=== PATIENT | male | born 2000 | race Caucasian/White ===

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

== ENCOUNTER 2018-06-08 15:15 | Emergency (ER) | payer MEDICAID ==
[~2018-06-08] VITALS: Ht 177.8 cm; Wt 65.0 kg
--- NOTE | 2018-06-08 15:30 | NUR ---
Unable to obtain history due to agitation. Pt very uncooperative during triage. Not answering questions.
[2018-06-08] MEDS ORDERED: haloperidol lactate 5mg/ml inj IM ONE ×2 (15:40→16:30)
[2018-06-08] MEDS ORDERED: LORazepam 2 mg/ml vial IM ONE ×2 (15:40→16:30)
[2018-06-08 15:50] LABS: CLARITY,URINE SLIGHTLY CLOUDY (Clear); COLOR,URINE YELLOW (Yellow); GLUCOSE, URINE NEGATIVE (Neg); KETONES,URINE 15 mg/dl (Neg); LEUKOCYTE ESTERASE ,URINE NEGATIVE (Neg); NITRITES, URINE NEGATIVE (Neg); OCCULT BLOOD,URINE NEGATIVE (Neg); PH,URINE 5.5 (4.8-8.0); PROTEIN,URINE 30 mg/dl (Neg); UROBILINOGEN,URINE 0.2 E.U/dL (0.2-1.0)
--- NOTE | 2018-06-08 15:52 | NUR ---
PT REQUEST ICE CHIPS, PITCHER X2 GIVEN. STATES, IM REALLY DEHYDRATED. ALSO GIVEN SANDWICH, JUICE
[2018-06-08 15:57] LABS: UA COLLECTION TYPE CLN CATCH MIDSTREAM
--- NOTE | 2018-06-08 15:57 | NUR ---
ELOPEMENT SENSOR TAG 38, APPLIED TO RIGHT ANKLE
[2018-06-08 15:58] LABS: MUCUS STRANDS MANY /LPF (Neg); SQUAMOUS EPITHELIAL CELL,UR FEW /LPF (FEW)
[2018-06-08 15:59] LABS: RBC,URINE 0-2 /HPF (0-2); WBC,URINE 0-4 /HPF (0-4)
[2018-06-08 16:00] LABS: BACTERIA,URINE NONE SEEN /HPF (Neg); URINE AMPHETAMINE SCREEN NEGATIVE (Neg); URINE BARBITUATE SCREEN NEGATIVE (Neg); URINE BENZODIAZEPINES SCREEN POSITIVE (Neg); URINE CANNABINOID SCREEN POSITIVE (Neg); URINE COCAINE SCREEN POSITIVE (Neg); URINE METHADONE SCREEN NEGATIVE (Neg); URINE OPIATE SCREEN POSITIVE (Neg); URINE PHENCYCLIDINE SCREEN NEGATIVE (Neg)
[2018-06-08 16:21] LABS: BASOPHILS % (AUTO) 0.4 % (0-1); EOSINOPHILS % (AUTO) 0.4 % (0-6); HEMATOCRIT 38.9 % (42.0-52.0); HEMOGLOBIN 13.3 g/dl (14.0-17.9); LYMPHOCYTES # (AUTO) 2.3 X10'3 (1.1-4.8); LYMPHOCYTES % (AUTO) 21.7 % (21-51); MEAN CORPUSCULAR HEMOGLOBIN 30.5 PG (27.0-31.0); MEAN CORPUSCULAR HGB CONC 34.3 g/dL (33.0-36.5); MEAN PLATELET VOLUME 9.3 FL (7.4-10.4); MONOCYTES # (AUTO) 1.2 X10'3 (0-0.9); MONOCYTES % (AUTO) 11.4 % (2-12); NEUTROPHILS % (AUTO) 66.1 % (42-75); PLATELET COUNT 170 X10'3 (140-440); RED BLOOD COUNT 4.37 X10'6 (4.70-6.10); RED CELL DISTRIBUTION WIDTH 12.5 % (11.5-14.5); WHITE BLOOD COUNT 10.6 X10'3 (4.5-11.0)
[2018-06-08] MEDS ORDERED: diphenhydrAMINE 50 mg/ml inj IM ONE (16:30)
[2018-06-08 16:35] LABS: ALANINE AMINOTRANSFERASE 16 U/L (12-78); ALBUMIN 3.4 G/DL (3.4-5.0); ALKALINE PHOSPHATASE 53 IU/L (20-180); ANION GAP 8 (8-16); ASPARTATE AMINO TRANSFERASE 18 U/L (10-37); BILIRUBIN,TOTAL 0.2 MG/DL (0.1-1.0); BLOOD UREA NITROGEN 15 MG/DL (7-18); BUN/CREATININE RATIO 15.6 (5.4-32.0); CALCIUM 8.8 MG/DL (8.5-10.1); CHLORIDE 107 MMOL/L (99-107); CREATININE 0.96 MG/DL (0.60-1.10); GLUCOSE 104 MG/DL (70-104); POTASSIUM 3.6 MMOL/L (3.5-5.1); SODIUM 141 MMOL/L (135-145); TOTAL CARBON DIOXIDE 26.3 MMOL/L (24-32); TOTAL PROTEIN 6.7 G/DL (6.4-8.2); eGFR > 90 ML/MIN
--- NOTE | 2018-06-08 16:42 | NUR ---
Pt BIB EMS from [facility] facility. Apparently he has been hearing voices that tell him to harm himself. He comes in with a cast to right arm where he punched a window yesterday. He lives at [facility] for the last 9 yrs. He is severely agitated, yelling, punching curtis. He has been medicated. He is now lying in bed sleeping.
[2018-06-08 16:45] LABS: ETHANOL < 0.010 GM/DL (0.0-0.010)
--- NOTE | 2018-06-08 17:25 | NUR ---
Called [facility] to inform them that pt is in unit and needs to be seen. However, he has been medicated and is currently sleeping. Melo will be seing pt in AM.
[2018-06-08] MEDS ORDERED: NO HOME MEDS (17:38)
--- NOTE | 2018-06-08 18:30 | NUR ---
Care assumed from Zonia Kerns RN. This patient was sedated prior to shift change. The patient is sleeping in hallway 27. The patients bed is locked in a low position. The patient is in view from the nursing station. Q15 minute rounding is being done for patient safety.
--- NOTE | 2018-06-09 05:14 | NUR ---
This patient has been sleeping all night. Q15 minute rounding continues for patient safety.
--- NOTE | 2018-06-09 07:13 | NUR ---
PT SLEEPING NO S/S AGIATION AT THIS TIME.
--- NOTE | 2018-06-09 07:20 | NUR ---
[facility] IS CALLED TO NOTIFY THEM THAT PT NEEDS A PSYCH EVAL.
--- NOTE | 2018-06-09 08:56 | NUR ---
PT NOW AWAKE DEMANDING TO LEAVE, STATES HE HAS BEEN LIED TO ABOUT HIS CARE. CAMILLE RN IS SITTING AT HIS BED TO CALM HIM AND EXPLAIN THE PROCEDURE. PT DOESNT WANT TO GO TO A "LO[facility]IE [facility]". CALL ER DOCTOR TO GET ORDERS FOR MEDICATIONS.
[2018-06-09] MEDS ORDERED: diphenhydrAMINE 25mg capsule PO ONE (09:05)
[2018-06-09] MEDS ORDERED: LORazepam 1 MG tablet PO ONE (09:05)
[2018-06-09] MEDS ORDERED: OLANZapine 5mg rapidly disint. tablet PO ONE (09:05)
--- NOTE | 2018-06-09 09:17 | NUR ---
PT AGREES TO TAKE ORAL MEDICATION AND IS NOW CALM AFTER CAMILLE RN TALKS TO HIM AND EXPLAINS THE PLAN. PT TAKES THE MEDICATION AND IS COOPERATIVE. SECURITY WAS CALLED AND NOW ARE LEAVING.
--- NOTE | 2018-06-09 12:23 | NUR ---
PT'S DELICATESSEN STORE MANAGER, GEETA CARBAJAL, ARRIVES TO TALK TO PT. PT IS ON EXTENDED FOSTER CARE. CELL: [phone] AND WE CAN CALL HER TO GET MORE HX IF NEEDED. PT IS STILL VERY SLEEPY AND ONLY TALKS TO HER FOR A BRIEF TIME.
--- NOTE | 2018-06-09 14:02 | NUR ---
PT REFUSING TO EAT HIS LUNCH, DRANK SOME WATER, THREATENING TO LEAVE. PG SECURITY TO BEDSIDE. HANNA FROM [facility] IN TO EVAL PT AND WILL PLACE HIM ON A 5150. PT GIVEN JUICE.
--- NOTE | 2018-06-09 15:18 | NUR ---
PT WAKES AND IS DEMANDING TO LEAVE. SECURITY AT BEDSIDE, PT GOES BACK TO HIS BED, LOBITO FROM [facility] IS CALLED TO NOTIFY HIM THAT PT IS AWAKE AND HE CAN EVALUATE HIM. HE IS ON HIS WAY DOWN
--- NOTE | 2018-06-09 15:45 | NUR ---
LOBITO FROM [facility] NOTIFIED THAT PT IS AWAKE AND WANTS TO TALK TO HIM. HE WILL BE DOWN RIGHT AWAY TO COMPLETE THE EVALUATION.
--- NOTE | 2018-06-09 16:00 | NUR ---
AFTER HIS EVALUATION FROM LOBITO AT [facility], PT IS RESIGNED TO THE FACT THAT HE WILL BE HERE FOR 3 DAYS AND IS MORE COOPERATIVE AND CALM. CECILIA TAKES PT'S TWO EARRINGS AND WILL CALL REGISTRATION TO LOCK THEM UP.
--- NOTE | 2018-06-09 16:52 | NUR ---
PT SLEEPING NO S/S AGITATION.
--- NOTE | 2018-06-09 18:17 | NUR ---
DINNER SAFTEY TRAYS SERVED. PT SLEEPING.
[2018-06-09] MEDS: risperiDONE 2mg tablet PO SCH (21:16)
--- NOTE | 2018-06-09 23:35 | NUR ---
PT AWAKE. PT ASKING IF A DOCTOR COULD LOOK AT HIS ARM TOMORROW. HURTS WHEN HE MOVES IT. ALSO HAVING DIFFICULTIES SLEEPING WILL LET DOC KNOW. ASKING FOR WATER AND SOMETHING TO DRINK. GAVE HIM SANDWICH, PITCHER OF WATER AND CHIPS.
--- NOTE | 2018-06-10 05:32 | NUR ---
pt awake asking if there is any chance he will be getting out today. [facility]
[2018-06-10] MEDS ORDERED: risperiDONE 2mg tablet PO SCH (08:00)
--- NOTE | 2018-06-10 09:45 | NUR ---
Pts R arm in ortho glass splint from injury that occurred last week. Pt had been complaining of R FA pain so mariel bandage, dressing and splint removed for evaluation. Pts anterior R FA with laceration that are with stiches and steri strips that are intact. Pts drsg was moderatley soiled with dried blood and NS had to be used to soften drsg to remove it. Pts arm c/o and findings reported to Dr. Millard. came over and assessed pts arm and pt to have arm x-ray'd and requesting documents from [facility] on proceedures that were done recently.
--- NOTE | 2018-06-10 10:00 | NUR ---
PTS LAC SITE STITCHES INTACT AND NO NOTED REDNESS,TENDERNESS OR EXCESS SWELLING OBSERVED. PTS ARM LAC WITH NON STICK DRSG AND PLACED BACK IN SPLINT WITH MARISABEL BANDAGE WRAPPING PER VO DR. ELIZALDE.
--- NOTE | 2018-06-10 10:10 | NUR ---
Pts psychiatric social worker supervisor here visiting pt.
[2018-06-10] MEDS ORDERED: ibuprofen tablet 400 MG TABLET PO PRN (11:30)
[2018-06-10] MEDS: LORazepam 1 MG tablet PO PRN ×2 (11:37→20:53)
--- NOTE | 2018-06-10 12:27 | NUR ---
PT RESTING ON LEFT SIDE RR EQUAL AND UNLABORED
[2018-06-10] MEDS: ibuprofen 200mg tablet PO PRN ×2 (13:23→20:54)
--- NOTE | 2018-06-10 16:53 | NUR ---
PTS GRANDMOTHER NAVEEN SANDY CALLED PER REQUEST OF PTS BROADCAST TRANSMITTER OPERATOR GEETA. GRANDMOTHER DISCLOSES PT HAD LIVED WITH HER FROM AGE [age].5. PT HAS MEDICAL HX OF [place] FOR PTSD, ANXIETY/DEPRESSION, ADHD AND HYPOTHYROIDISM. GRANDMOTHER REPORTS PT HAD BEEN TREATED BEDFORE WITH MEDICATION RISPERADOL BUT MED WAS DC'D DUE TO PT C/O BREAST TENDERNESS. GRANDMOTHER REPORTS PT HAS BEEN DEPRESSED BEFORE BUT NOT ABLE TO RECALL PT EVER DELUSIONAL. 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 PT LEFT HER PHONE NUMBER: .
[2018-06-10 17:30] VITALS: BP 99/56
[2018-06-10] MEDS: risperiDONE 2mg tablet PO SCH (20:54)
== END 2018-06-10 21:37 | disposition home or self-care (01) ==
LOC: ER 15:16
DX: F32.9 Major depressive disorder, single episode, unspecified (principal); F19.10 Other psychoactive substance abuse, uncomplicated
CPT/HCPCS: 36415; 73090; 80053; 80305; 80320; 81001; 84443; 85025; 96372; 99284; J1200; J1630; J2060; Q0163

== ENCOUNTER 2018-06-10 17:45 | Inpatient (IN) | payer MEDICAID | END 2018-06-15 16:37 | disposition still patient (30) | LOC: ADULT MH 17:45 | DX: F32.9 Major depressive disorder, single episode, unspecified (principal); E43 Unspecified severe protein-calorie malnutrition ==

== ENCOUNTER 2018-06-19 23:05 | Emergency (ER) | payer MEDICAID ==
[~2018-06-19 23:05] MED LIST changes: -CIPR2.5D18 EACHEYE; +RISP0.5T3 PO; +RISP2TAB3 PO; +TRAZ-218 PO
== END 2018-06-20 03:37 | disposition left against medical advice (07) ==
LOC: ER 23:06
DX: M79.18 Myalgia, other site (principal); Z53.21 Procedure and treatment not carried out due to patient leaving prior to being seen by health care provider

== ENCOUNTER 2018-06-24 11:39 | Emergency (ER) | payer MEDICAID ==
[~2018-06-24] VITALS: Ht 180.3 cm; Wt 59.1 kg
[2018-06-24] MEDS ORDERED: diphenhydrAMINE 50 mg/ml inj IM ONE (11:50)
[2018-06-24] MEDS ORDERED: haloperidol lactate 5mg/ml inj IM ONE (11:50)
[2018-06-24] MEDS ORDERED: LORazepam 2 mg/ml vial IM ONE (11:50)
[2018-06-24 12:24] LABS: BASOPHILS % (AUTO) 0.3 % (0-1); EOSINOPHILS % (AUTO) 0.4 % (0-6); HEMATOCRIT 41.3 % (42.0-52.0); HEMOGLOBIN 13.9 g/dl (14.0-17.9); LYMPHOCYTES % (AUTO) 25.7 % (21-51); MEAN CORPUSCULAR HEMOGLOBIN 29.9 PG (27.0-31.0); MEAN CORPUSCULAR HGB CONC 33.6 g/dL (33.0-36.5); MONOCYTES # (AUTO) 0.8 X10'3 (0-0.9); MONOCYTES % (AUTO) 9.9 % (2-12); NEUTROPHILS # (AUTO) 5.1 X10'3 (1.8-7.7); NEUTROPHILS % (AUTO) 63.7 % (42-75); PLATELET COUNT 263 X10'3 (140-440); RED BLOOD COUNT 4.64 X10'6 (4.70-6.10); RED CELL DISTRIBUTION WIDTH 12.5 % (11.5-14.5); WHITE BLOOD COUNT 7.9 X10'3 (4.5-11.0)
[2018-06-24 12:26] LABS: CLARITY,URINE CLEAR (Clear); COLOR,URINE YELLOW (Yellow); GLUCOSE, URINE NEGATIVE (Neg); KETONES,URINE NEGATIVE (Neg); LEUKOCYTE ESTERASE ,URINE NEGATIVE (Neg); NITRITES, URINE NEGATIVE (Neg); OCCULT BLOOD,URINE NEGATIVE (Neg); PROTEIN,URINE NEGATIVE (Neg); UROBILINOGEN,URINE 0.2 E.U/dL (0.2-1.0)
[2018-06-24 12:28] LABS: UA COLLECTION TYPE VOIDED
[2018-06-24 12:34] LABS: URINE AMPHETAMINE SCREEN NEGATIVE (Neg); URINE BARBITUATE SCREEN NEGATIVE (Neg); URINE BENZODIAZEPINES SCREEN NEGATIVE (Neg); URINE CANNABINOID SCREEN POSITIVE (Neg); URINE COCAINE SCREEN NEGATIVE (Neg); URINE METHADONE SCREEN NEGATIVE (Neg); URINE OPIATE SCREEN NEGATIVE (Neg); URINE PHENCYCLIDINE SCREEN NEGATIVE (Neg)
[2018-06-24 12:39] LABS: ALANINE AMINOTRANSFERASE 52 U/L (12-78); ALBUMIN 3.9 G/DL (3.4-5.0); ALBUMIN/GLOBULIN RATIO 1.1 (1.1-1.5); ALKALINE PHOSPHATASE 63 IU/L (20-180); ANION GAP 5 (8-16); ASPARTATE AMINO TRANSFERASE 41 U/L (10-37); BILIRUBIN,TOTAL 0.2 MG/DL (0.1-1.0); BLOOD UREA NITROGEN 15 MG/DL (7-18); BUN/CREATININE RATIO 15.2 (5.4-32.0); CALCIUM 9.2 MG/DL (8.5-10.1); CHLORIDE 103 MMOL/L (99-107); CREATININE 0.99 MG/DL (0.60-1.10); ETHANOL < 0.010 GM/DL (0.0-0.010); GLUCOSE 87 MG/DL (70-104); SODIUM 141 MMOL/L (135-145); TOTAL PROTEIN 7.3 G/DL (6.4-8.2); eGFR > 90 ML/MIN
--- NOTE | 2018-06-24 13:59 | NUR ---
PT REPORTS 8/10 PAIN TO RIGHT HAND AND HAVING INCREASED ANXIETY, JEREMIAH ARIAS INFORMED, VERBAL ORDER FOR 800MG IBUPROFEN AND 1 MG PO ATIVAN ONCE NOW.
[2018-06-24] MEDS ORDERED: LORazepam 1 MG tablet PO ONE ×2 (14:00→17:00)
[2018-06-24] MEDS ORDERED: ibuprofen tablet 400 MG TABLET PO ONE (14:00)
--- NOTE | 2018-06-24 14:10 | NUR ---
PT IS CALM AND COOPERATIVE, ASKING FOR PAIN AND ANXIETY MEDS, ALSO ASKING IF TV TO WATCH, PT IS RESPECTFUL DURING INTERACTION WITH RN, PT GIVEN LUNCH TRAY AND MEDICATED PER ORDERS.
--- NOTE | 2018-06-24 15:15 | NUR ---
TURNED OFF LIGHTS FOR PATIENT, SLEEPING NOW. NO APPARENT DISTRESS, RESPIRATIONS SPONTANEOUS AND UNLADBORED AND REGULAR
[2018-06-24] MEDS: OLANZapine 2.5MG tablet PO SCH (17:26)
--- NOTE | 2018-06-24 18:55 | NUR ---
grandmother, sean, [phone], calling for update and with many concerns. she reports pt was in our behavior health unit last week and that a SW, Haylie, here was trying to get him placement at [facility]. She reports pt was discharged by Melo Wright, the PA at [facility], and he called her and reported that he was doing well and was ready for discharge. Pt then picked up by his grandmother and she reports his behavior was bizzare and he was restless and was not at all at baseline. Grandmother reports he needs longer term inpatient psych treatment. They have taken care of him since he was 9 years old and he is a foster child and has long standing history of mental health, anxiety, and ADHD. His father was bipolar and she suspectes he is also. He is well established with the monitor worker but they don't seem to have been helping him get stabilazed with his mental health issues. Pt was released from assisted at 1 am this morning (early as his initial sentence was until July 06). He was released in the pouring rain, with scant clothing and was very distressed by this. He called his grandmother and she picked him up. His behavior was again bizzare, he was awake through the night and noisy and going in and out of the house and was skatboarding at 3 in the morning on the [address] outside their house. She reports he "should not be released". I explained the process of our hold and that i will leave a note for [facility] to contact her and that he will likely not bee seen until tomorrow by them.
--- NOTE | 2018-06-24 19:57 | NUR ---
pt given snacks (jello, crackers, ericka crackers, sandwich, juice ) and pitcher of water. Pt reports he is "always hungry because im comming off the [facility] food". I reiterated the process of 5150 and mental health hold and he reports he hecalls this from his last admission. He states "i do not want to go upstairs". Referring to [facility]. "I need to go somewhere else". "I can't stay here for 3 days though...i have the most important court case of my life to prepare for". He reports that on July [address] case that is "just so rediculous" but will not elaborate on why he was arrested. "I will leave here if they tell me i have to stay...I'm tired of being controlled" referring to his recent incarceration and inpt psych admission. "If i have to fight off 5 security guards i will...i won't stay if they tell me i have to tomorrow morning". I reiterated that his 5150 is a legal hold placed by the officer and only [facility] can uplift it. Pt reports he wants help and want his meds fixed. He reports respiradol does not work for him and makes him restless and anxious and he does not want it. His grandmother had reported that he was taking it as a teenager and it had these same effects and his ADHD was worse and his anxiety was worse and he was "acting out more". Pt requests some benedryl to help him sleep as he does not like the way trazadone makes him feels. He states his mind is busy and he is thinking about a lot of stuff that is stressfull. Pt was thankful to me and has been complient with assessment and care.
--- NOTE | 2018-06-24 20:36 | NUR ---
Verbal received from Dr. Brown for benedryl 25 mg po , per pt request to help him sleep. report given to buddy esparza rn, pt to be moved over there shortly. Pt currently lying on the gurney on his right side with blankets covering to his shoulders. RR 16 and unlabored.
--- NOTE | 2018-06-24 20:52 | NUR ---
The patient was moved to bed 27. He states he is doing well but feels tired.
[2018-06-24] MEDS ORDERED: diphenhydrAMINE 25mg capsule PO ONE (20:55)
--- NOTE | 2018-06-24 22:34 | NUR ---
Report to Nicki Vanegas RN
--- NOTE | 2018-06-24 22:34 | NUR ---
The patient appears to be asleep at this time.
--- NOTE | 2018-06-25 00:42 | NUR ---
Report to Nicki Shine
--- NOTE | 2018-06-25 02:22 | NUR ---
The patient appears to be asleep at this time.
--- NOTE | 2018-06-25 04:59 | NUR ---
The patient is awake at this time after having been asleep since coming to bed 27. He got up to use the bathroom. He was polite and requested something to eat and a snack was provided.
[2018-06-25] MEDS ORDERED: OLANZapine 2.5MG tablet PO STA (05:09)
[2018-06-25] MEDS ORDERED: ibuprofen tablet 400 MG TABLET PO ONE (05:10)
[2018-06-25] MEDS ORDERED: LORazepam 1 MG tablet PO ONE (05:10)
--- NOTE | 2018-06-25 05:17 | NUR ---
The patient quickly escalated and was demanding to be let out. Stating "how many sercurity guards do I have to fight to get out of here" stating he had court this today and he was here illegally. He then stated "I'm going to run" Security called and patient escorted back to his bed. Dr. Palafox consulted and the patient was medicated with ativan one mg and zyprexa 5 mg. He was also given motrin for complaints of hand pain. He did rip his hand splint.
[2018-06-25] MEDS ORDERED: haloperidol lactate 5mg/ml inj IM ONE (05:30)
[2018-06-25] MEDS ORDERED: diphenhydrAMINE 50 mg/ml inj IM ONE (05:30)
--- NOTE | 2018-06-25 05:40 | NUR ---
The patient continued to posture and threaten staff and make vulgar statements. Dr. Palafox reconsulted and IM medications given. The patient did lay on his side and accepted the injection. Sercurity staff still at the station as soon on standby.
[2018-06-25 05:52] VITALS: BP 135/60
--- NOTE | 2018-06-25 06:50 | NUR ---
Patient sleeping on right side. No restlessness observed. Continue to monitor.
--- NOTE | 2018-06-25 08:50 | NUR ---
Patient continues to sleep. No restlessness observed. Continue to monitor.
--- NOTE | 2018-06-25 10:03 | NUR ---
Patient continues to sleep. No restlessness observed. Continue to monitor.
--- NOTE | 2018-06-25 12:20 | NUR ---
RN went to go check patient's oxygen saturation and patient awoke. RN gave patient his breakfast. Patient was calm and cooperative. Patient advised that he would be leaving soon and patient took the information well.
[2018-06-25] MEDS: OLANZapine 2.5MG tablet PO SCH (12:25)
--- NOTE | 2018-06-25 12:45 | NUR ---
2 finger splints placed on right hand, index and pinky finger. Patient tolerated well.
== END 2018-06-25 13:08 ==
LOC: ER 11:40
DX: S62.610A Displaced fracture of proximal phalanx of right index finger, initial encounter for closed fracture (principal); S62.616A Displaced fracture of proximal phalanx of right little finger, initial encounter for closed fracture; F32.9 Major depressive disorder, single episode, unspecified; J45.909 Unspecified asthma, uncomplicated; Z88.8 Allergy status to other drugs, medicaments and biological substances; X58.XXXA Exposure to other specified factors, initial encounter; Y93.89 Activity, other specified; Y92.89 Other specified places as the place of occurrence of the external cause; Y99.8 Other external cause status
CPT/HCPCS: 36415; 73130; 80053; 80305; 80320; 81003; 85025; 96372; 99285; J1200; J1630; J2060; Q0163